=== PATIENT | male | born 1980 | race Caucasian/White ===

== ENCOUNTER 2021-01-31 22:19 | Inpatient (IN) | payer SELFPAY ==
[2021-01-31 22:24] VITALS: PULSE 148; RESP 48; TEMP 39.6; O2SAT 95; BMI 31.1
--- NOTE | 2021-01-31 22:26 | XRR_ITS ---
PROCEDURE INFORMATION: Exam: XR Chest Exam date and time: 01/31/2021 10:26 PM Age: 40 years old Clinical indication: Device placement; Ett placement (vent status); Patient HX: Check S/P intubation in er. ; Additional info: Od TECHNIQUE: Imaging protocol: XR of the chest. Views: 1 view. COMPARISON: No relevant prior studies available. FINDINGS: Tubes, catheters and devices: ET tube present, tip 1.5 cm above the les. Lungs: No CHF/pulmonary edema. Visible lungs appear essentially clear. Pleural spaces: No visible pneumothorax. No definite pleural fluid. Heart/Mediastinum: Heart size is within normal limits. Vasculature: Mild to moderate aortic tortuosity. Bones/joints: No significant acute finding. XR/XR chest 1V portable [id number] IMPRESSION: 1. ET tube as discussed above. 2. No definite pneumonia or CHF. 3. Other findings discussed above.
--- NOTE | 2021-01-31 22:26 | ECG_ITS ---
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 Measurements Intervals [place] Rate: 127 P: 69 CT: 143 QRS: 72 QRSD: 87 T: 58 QT: 286 QTc: 416 Interpretive Statements SINUS TACHYCARDIA ABNORMAL RHYTHM ECG No previous ECG available for comparison Electronically Signed On 02-03-2021 18:22:14 CDT by Sadia Evans M.D. [email or web address]
[2021-01-31] MEDS: LORazepam 2 mg/mL INJ 1 mL 4 MG (22:31)
[2021-01-31 22:32] LABS: Basophils # 0.2 10^3/uL (0.0-0.1); Basophils % 1.1 %; Eosinophils # 0.2 10^3/uL (0.0-0.8); Eosinophils % 1.1 %; Hematocrit 50.7 % (42.0-52.0); Hemoglobin 15.8 g/dL (11.7-16.6); Lymphocytes # 6.2 10^3/uL (0.8-4.8); Mean Corpuscular HGB Conc 31.2 g/dL (30.0-36.0); Mean Corpuscular Hemoglobin 30.3 pg (28.0-34.0); Mean Corpuscular Volume 97.1 fl (80-94); Mean Platelet Volume 9.9 fL (7.4-10.4); Monocytes # 1.6 10^3/uL (0.2-0.9); Monocytes % 10.6 %; Neutrophils # 6.95 10^3/uL (1.8-7.7); Neutrophils % 45.8 %; Nucleated Red Blood Cells % 0 %; Platelet Count 256 10^3/cmm (130-400); Red Blood Count 5.22 10^6/uL (4.1-5.3); White Blood Count 15.2 10^3/uL (4.0-10.0)
[2021-01-31] MEDS: vecuronium 10 mg SDV IVP (22:34)
--- NOTE | 2021-01-31 22:35 | W.ED.OVERDOS ---
HPI - Overdose General: Chief Complaint: Overdose Stated Complaint: ate a handful of meth Time Seen by Provider: 01/31/21 22:25 Source: police Mode of arrival: other (police) Limitations: altered mental status History of Present Illness: HPI Narrative: 40-year-old male who been using methamphetamine today and had a bag of meth in his posession. He was pulled over roughly 20 minutes ago and took the whole bag of methamphetamine at that time. He here is under severe distress. He is extremely diaphoretic altered hypertensive and febrile. He is unable to give any history here. Please states he started to become altered about 10 minutes ago. Review of Systems General: Reports: ROS unobtainable due to medical condition and ROS unobtainable due to mental status Physical Exam Const: COMMON NORMALS: negative for patient oriented x3 GENERAL APPEARANCE: in distress and ill appearing HENMT: COMMON NORMALS: normocephalic and atraumatic HEAD & SCALP: normocephalic and atraumatic Eye: COMMON NORMALS: Equal, round and reactive pupils present and EOMs intact bilaterally PUPIL: Yes Equal, round and reactive pupils present Neck/C-Spine: COMMON NORMALS: full ROM and supple Chest: COMMONS NORMALS: normal inspection of the chest and normal palpation of entire chest wall Resp: COMMON NORMALS: normal respiratory effort, No retractions, No use of accessory muscles and clear to auscultation bilaterally AUSCULTATION: clear to auscultation bilaterally Cardio: COMMON NORMALS: regular rhythm and No murmurs present (Cardio) RATE: tachycardic RHYTHM: regular rhythm GI: COMMON NORMALS: Normal to inspection, nondistended, normoactive bowel sounds present, Soft to palpation, non-tender and no masses PALPATION: Yes Soft to palpation Extremity: COMMON NORMALS: normal to inspection and full ROM Neuro: COMMON NORMALS: negative for patient oriented x3 Psych: COMMON NORMALS: negative for mental status grossly normal and negative for Normal thought process present THOUGHT PROCESS: abnormal Skin: COMMON NORMALS: no rashes or lesions noted and no wounds GENERAL SKIN EXAM: no rashes or lesions noted Procedures Intubation Time out performed: Yes sedative: Etomidate Mg Given: 20 paralytic: Vecuronium Mg Given: 10 Laryngoscope: Lakeisha ET Tube Size: 8 ET Tube Uncuffed: No Tube Secured Depth (cm): 26 Tube Secured Location: teeth Tube Placement Confirmation: visualized tube passing through cords, equal breath sounds bilaterally, no breath sounds over epigastrium and confirmation by capnometry Patient Tolerated Procedure: well Intubation Complications: none Course Vital Signs: Vital signs: Vital Signs Temperature 98.5 F 02/01/21 00:20 Pulse Rate 114 H 02/01/21 00:50 Respiratory Rate 16 02/01/21 00:50 Blood Pressure 101/57 02/01/21 00:50 Pulse Oximetry 99 02/01/21 00:50 MDM - Overdose MDM Narrative: Medical decision making narrative: Patient presents here with an overdose on methamphetamine. Patient was intubated due to his altered mental status hypothermia and elevated heart rate. Patient was diffusely sweaty as well. Patient's vital signs have all improved greatly. Patient is given IV fluids as well. Spoke to the hospitalist Dr. Bassett and will admit. Did attempt to transfer but was not able to find any bed availability and will have to hold in the ER at this time. Lab Data: Labs: Lab Results 01/31/21 01/31/21 01/31/21 Range/Units 11:30 22:25 22:25 WBC 15.2 H (4.0-10.0) 10^3/ uL RBC 5.22 (4.1-5.3) 10^6/u L Hgb 15.8 (11.7-16.6) g/dL Hct 50.7 (42.0-52.0) % MCV 97.1 H (80-94) fl MCH 30.3 (28.0-34.0) pg MCHC 31.2 (30.0-36.0) g/dL RDW 13.0 (12.1-15.1) % Plt Count 256 (130-400) 10^3/c mm MPV 9.9 (7.4-10.4) fL Neut % (Auto) 45.8 % Lymph % (Auto) 41.0 % [place] % (Auto) 10.6 % Eos % (Auto) 1.1 % Baso % (Auto) 1.1 % Neut # (Auto) 6.95 (1.8-7.7) 10^3/u L Lymph # (Auto) 6.2 H (0.8-4.8) 10^3/u L [place] # (Auto) 1.6 H (0.2-0.9) 10^3/u L Eos # (Auto) 0.2 (0.0-0.8) 10^3/u L Baso # (Auto) 0.2 H (0.0-0.1) 10^3/u L Nucleated RBC % (a uto) 0 % Nucleated RBCs # 0.0 /100WBC Specimen Type Arterial Sample Site Radial, right ABG pH 7.37 (7.35-7.45) ABG pCO2 46.8 H (35-45) mmHg ABG pO2 545.0 H (80.0-100.0) mmH g ABG HCO3 26.7 H (22-26) mmol/L ABG Base Excess 0.7 (-2.0-2.0) mmol/ L William Test Pos Hematocrit 44.0 (42-52) % O2 Delivery Device Vent FiO2 100.0 % Tidal Volume 0.55 PEEP 5.0 cmH20 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 [place] Sodium 144 (136-145) mmol/L Potassium 4.5 (3.5-5.1) mmol/L Chloride 100 (98-107) mmol/L Carbon Dioxide 17 L (22-29) mmol/L Anion Gap 31.5 H (5-19) BUN 17 (6-20) mg/dL Creatinine 1.4 H (0.7-1.2) mg/dL GFR Calculation 55.8 L (90-130) mL/min Glucose 95 (65-115) mg/dL Calculated Osmolal ity 299 H (285-295) mOsm/k g Calcium 9.3 (8.5-10.5) mg/dL Total Bilirubin 0.6 (0.15-1.2) mg/dL AST 53 H (0-40) U/L ALT 87 H (0-41) U/L Alkaline Phosphata se 94 (40-130) IU/L Creatine Kinase (39-308) U/L Total Protein 8.0 (6.6-8.7) g/dL Albumin 4.3 (3.5-5.2) g/dL Globulin 3.7 (1.3-4.6) g/dL Salicylates < 0.3 L (3-10) mg/dL Urine Opiates Scre en (Negative) ng/mL Acetaminophen < 5.0 L (10-30) ug/mL Ur Barbiturates Sc reen (Negative) ng/mL Ur Phencyclidine S crn (Negative) ng/mL Ur Amphetamines Sc reen (Negative) ng/mL U Benzodiazepines Scrn (Negative) ng/mL Urine Cocaine Scre en (Negative) ng/mL U Marijuana (THC) Screen (Negative) ng/mL Ethyl Alcohol < 10 (0-10) mg/dL 01/31/21 01/31/21 Range/Units 22:25 23:00 WBC (4.0-10.0) 10^3/ uL RBC (4.1-5.3) 10^6/u L Hgb (11.7-16.6) g/dL Hct (42.0-52.0) % MCV (80-94) fl MCH (28.0-34.0) pg MCHC (30.0-36.0) g/dL RDW (12.1-15.1) % Plt Count (130-400) 10^3/c mm MPV (7.4-10.4) fL Neut % (Auto) % Lymph % (Auto) % [place] % (Auto) % Eos % (Auto) % Baso % (Auto) % Neut # (Auto) (1.8-7.7) 10^3/u L Lymph # (Auto) (0.8-4.8) 10^3/u L [place] # (Auto) (0.2-0.9) 10^3/u L Eos # (Auto) (0.0-0.8) 10^3/u L Baso # (Auto) (0.0-0.1) 10^3/u L Nucleated RBC % (a uto) % Nucleated RBCs # /100WBC Specimen Type Sample Site ABG pH (7.35-7.45) ABG pCO2 (35-45) mmHg ABG pO2 (80.0-100.0) mmH g ABG HCO3 (22-26) mmol/L ABG Base Excess (-2.0-2.0) mmol/ L William Test Hematocrit (42-52) % O2 Delivery Device FiO2 % Tidal Volume PEEP cmH20 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 Sodium (136-145) mmol/L Potassium (3.5-5.1) mmol/L Chloride (98-107) mmol/L Carbon Dioxide (22-29) mmol/L Anion Gap (5-19) BUN (6-20) mg/dL Creatinine (0.7-1.2) mg/dL GFR Calculation (90-130) mL/min Glucose (65-115) mg/dL Calculated Osmolal ity (285-295) mOsm/k g Calcium (8.5-10.5) mg/dL Total Bilirubin (0.15-1.2) mg/dL AST (0-40) U/L ALT (0-41) U/L Alkaline Phosphata se (40-130) IU/L Creatine Kinase 132 (39-308) U/L Total Protein (6.6-8.7) g/dL Albumin (3.5-5.2) g/dL Globulin (1.3-4.6) g/dL Salicylates (3-10) mg/dL Urine Opiates Scre en Negative (Negative) ng/mL Acetaminophen (10-30) ug/mL Ur Barbiturates Sc reen Negative (Negative) ng/mL Ur Phencyclidine S crn Negative (Negative) ng/mL Ur Amphetamines Sc reen Positive H (Negative) ng/mL U Benzodiazepines Scrn Negative (Negative) ng/mL Urine Cocaine Scre en Negative (Negative) ng/mL U Marijuana (THC) Screen Negative (Negative) ng/mL Ethyl Alcohol (0-10) mg/dL Imaging Data^: CXR: Attestation: I personally reviewed and interpreted this imaging study as follows: Radiologist's impression: [address] [address] XRay Report Signed Patient: ranjith mckinney Unit #: [id number] : 1980 Age/Sex: 40 / M ADM Date: 01/31/21 Loc: ER Room/Bed: Attending Dr: Ordering Provider/Ordering MD: Arcadio Rolon MD Date of Service: 01/31/21 Procedure(s): XR chest 1V portable [id number] Accession Number(s): [id number] Report Number: [id number] PROCEDURE INFORMATION: Exam: XR Chest Exam date and time: 01/31/2021 10:26 PM Age: 40 years old Clinical indication: Device placement; Ett placement (vent status); Patient HX: Check S/P intubation in er. ; Additional info: Od TECHNIQUE: Imaging protocol: XR of the chest. Views: 1 view. COMPARISON: No relevant prior studies available. FINDINGS: Tubes, catheters and devices: ET tube present, tip 1.5 cm above the les. Lungs: No CHF/pulmonary edema. Visible lungs appear essentially clear. Pleural spaces: No visible pneumothorax. No definite pleural fluid. Heart/Mediastinum: Heart size is within normal limits. Vasculature: Mild to moderate aortic tortuosity. Bones/joints: No significant acute finding. XR/XR chest 1V portable [id number] IMPRESSION: 1. ET tube as discussed above. 2. No definite pneumonia or CHF. 3. Other findings discussed above. Dictated By: Jace Alfaro MD Signed By: Jace Alfaro MD Signed Date/Time: 01/31/212340 DD/ 39 EKG Data^: EKG 1: Attestation: I personally reviewed and interpreted this EKG as follows: EKG interpretation date: 01/31/21 EKG interpretation time: 23:13 Interpretation: sinus tach hr [address] or twave abnormalities qrs 87 qtc 361 Critical Care Time Critical Care Time: Critical Care Time: Yes Total Critical Care Time: 36 Attestation: This case had a high probability of a clinically significant, sudden, or life threatening deterioration of this patient's condition which required my full and direct attention, intervention and personal management. Coding Level of Care Code ED Scales Inspector for Chg Fwd Exam Comprehensive
[2021-01-31] MEDS: propofol 1,000 MG/100 ML INJ 22 MG IV (22:40)
[2021-01-31] MEDS: propofol 1,000 MG/100 ML INJ 35 MG (22:40)
[2021-01-31 22:57] VITALS: RESP 14
[2021-01-31 22:57] LABS: Alanine Aminotransferase 87 U/L (0-41); Albumin Level 4.3 g/dL (3.5-5.2); Alkaline Phosphatase 94 IU/L (40-130); Aspartate Amino Transferase 53 U/L (0-40); Blood Urea Nitrogen 17 mg/dL (6-20); Calcium 9.3 mg/dL (8.5-10.5); Carbon Dioxide 17 mmol/L (22-29); Chloride 100 mmol/L (98-107); Globulin 3.7 g/dL (1.3-4.6); Glomerular Filtration Rate 55.8 mL/min (90-130); Glucose 95 mg/dL (65-115); Osmolality Calculated 299 mOsm/kg (285-295); Sodium 144 mmol/L (136-145); Total Bilirubin 0.6 mg/dL (0.15-1.2)
[2021-01-31 23:03] LABS: Acetaminophen < 5.0 ug/mL (10-30); Alcohol Level < 10 mg/dL (0-10); Salicylate < 0.3 mg/dL (3-10); Slide Review Slide Review Perform
[2021-01-31 23:04] LABS: Anion Gap 31.5 (5-19); Creatine Phosphokinase 132 U/L (39-308); Potassium 4.5 mmol/L (3.5-5.1)
[2021-01-31] MEDS: sodium chloride 0.9% 1,000 ML 999 ML IV (23:06)
[2021-01-31 23:42] LABS: ABG PCO2 46.8 mmHg (35-45); ABG PH Result 7.37 (7.35-7.45); Base Excess ABG 0.7 mmol/L (-2.0-2.0); Blood Gas Allen Test Pos; Blood Gas Sample Type Arterial; HCO3 ABG 26.7 mmol/L (22-26)
[2021-01-31 23:43] LABS: Blood Gas Operator Identificat MONRO; Blood Gas Sample Site Radial, right; Blood Gas Tidal Volume 0.55; Oxygen Device VENT
[2021-01-31 23:50] VITALS: BP 103/62; PULSE 120; RESP 16; O2SAT 99
[2021-01-31 23:59] LABS: Amphetamines Screen Urine Positive (Negative); Barbiturates Screen Urine Negative (Negative); Benzodiazepines Screen Urine Negative (Negative); Cocaine Screen Urine Negative (Negative); Opiate Screen Urine Negative (Negative); PCP Screen Urine Negative (Negative); THC Screen Urine Negative (Negative)
[2021-02-01] VITALS (17 sets, daily range): BP systolic 97–129; BP diastolic 56–76; PULSE 99–116; RESP 14–20; TEMP 36.9; O2SAT 94–100
[2021-02-01] MEDS: sodium chloride 0.9% 1,000 ML 999 ML IV ×2 (00:05→20:30)
[2021-02-01] MEDS: propofol 1,000 MG/100 ML INJ 25 MG IV ×3 (01:06→08:43)
[2021-02-01] MEDS: sodium chloride 0.9% 1,000 ML 100 ML IV (01:16)
[2021-02-01 06:26] LABS: Add Urine Microscopic? YES; Bilirubin Urine 1+ (Negative); Blood Urine Neg (Negative); Glucose Urine UA Norm (Normal); Ketones Urine Negative (Negative); Leukocyte Esterase Urine 2+ (Negative); Nitrate Urine Negative (Negative); Protein Urine Neg (Negative); Specific Gravity, Urine 1.025 (1.005-1.030); Urine Appearance Cloudy (CLEAR); Urine Color Yellow (Yellow); Urobilinogen Urine Norm (Negative); pH Urine 5 (5-7)
[2021-02-01 06:27] LABS: Add Urine Culture? Yes; Amorphous Sediment Urine 4+ /hpf; Bacteria Urine 1+ /hpf; RBC Urine 0-4 /hpf (0-2); Squamous Epithelial Cell Urine 0-4 /hpf (0-5); WBC Urine 40-55 /hpf (0-5)
[2021-02-01] MEDS: cefTRIAXone 1,000 MG in sodium chloride 0.9% (plus) 50 ML 100 MG IV (06:34)
--- NOTE | 2021-02-01 06:39 | P.HP_ITS ---
Providers/Chief Complaint Admitting Physician: Yoli Bassett MD Primary Care Provider: none known Chief Complaint: ate a handful of meth History of Present Illness SHAYY BROUSSARD is a 40 year old male who presented to the emergency room after taking 2 to 3 g (estimated) of methamphetamine during a police stop. He had been pulled over and took everything that he had on him orally. By the time he arrived here via EMS he was in significant distress, tachycardic, diaphoretic, altered. Nursing staff reported seizure-like activity although this was not passed on to me otherwise. Patient was intubated and has received IV fluids. We do not have any history on him. Review of external medication records shows that he was prescribed some linezolid in November of this year. Patient is being mated for further care. There are currently no ICU beds available. He will be boarding in the ER. He received Rocephin for abnormal urinalysis. Review of Systems General: Reports: ROS unobtainable due to endotracheal tube, ROS unobtainable due to medical condition and ROS unobtainable due to mental status Medications/Allergies Allergies Allergy/AdvReac Type Severity Reaction Status Date / Time No Known Allergies Allergy Verified 02/01/21 04:49 Additional Medication Information no known meds or allergies, prescribed linezolid in November 2020 per external records PFSH Acute PFSH: Social History (Updated 02/01/21 @ 07:27 by Yoli Bassett MD) Substance/Drug Use: current Substance/Drug use type: Methamphetamine Supplemental PFSH Information: Unable to obtain past medical, surgical, social or family history due to current clinical condition/ETT Vitals/I&O/Wt Last Vital Signs Temp 98.5 F 02/01/21 00:20 Pulse 99 02/01/21 06:22 Resp 18 02/01/21 06:22 BP 98/60 02/01/21 06:22 Pulse Ox 100 02/01/21 06:22 01/31/21 01/31/21 02/01/21 14:59 22:59 06:59 Intake Total 2165.066 / 2165.066 Balance 2165.066 / 2165.066 Weight last 48 hrs Weight 104.326 kg Physical Exam Narrative: EXAM NARRATIVE: Constitutional: Sedated on ventilator HEENT: Pupils are reactive, injected sclera, dry lips, mucous membranes though appear moist Neck: Supple Respiratory: Clear to auscultation bilaterally Cardiovascular: Regular rhythm, no murmurs Abdomen: Soft, nontender, positive bowel sounds : Green catheter noted, normal external genitalia Extremities: No pitting edema or acute synovitis Skin: Dry, cool, scattered minor bruises and abrasions, no track albert noted between toes. Both ACs are covered currently to maintain IVs. Neuro: No abnormal movements Urinary Catheter Management^: Green: Cath Placed During This Visit: yes Urinary Catheter Date of Insertion: 01/31/21 Urinary Catheter Time of Insertion: 23:40 Data : 01/31/21 22:25 01/31/21 22:25 Other data: Laboratory Results WBC 15.2 10^3/uL (4.0-10.0) H 01/31/21 22:25 RBC 5.22 10^6/uL (4.1-5.3) 01/31/21 22:25 Hgb 15.8 g/dL (11.7-16.6) 01/31/21 22:25 Hct 50.7 % (42.0-52.0) 01/31/21 22:25 MCV 97.1 fl (80-94) H 01/31/21 22:25 MCH 30.3 pg (28.0-34.0) 01/31/21 22:25 MCHC 31.2 g/dL (30.0-36.0) 01/31/21 22:25 RDW 13.0 % (12.1-15.1) 01/31/21 22:25 Plt Count 256 10^3/cmm (130-400) 01/31/21 22:25 MPV 9.9 fL (7.4-10.4) 01/31/21 22:25 Neut % (Auto) 45.8 % 01/31/21 22:25 Lymph % (Auto) 41.0 % 01/31/21 22:25 [place] % (Auto) 10.6 % 01/31/21 22:25 Eos % (Auto) 1.1 % 01/31/21 22:25 Baso % (Auto) 1.1 % 01/31/21 22:25 Neut # (Auto) 6.95 10^3/uL (1.8-7.7) 01/31/21 22:25 Lymph # (Auto) 6.2 10^3/uL (0.8-4.8) H 01/31/21 22:25 [place] # (Auto) 1.6 10^3/uL (0.2-0.9) H 01/31/21 22:25 Eos # (Auto) 0.2 10^3/uL (0.0-0.8) 01/31/21 22:25 Baso # (Auto) 0.2 10^3/uL (0.0-0.1) H 01/31/21 22:25 Nucleated RBC % (auto) 0 % 01/31/21 22:25 Nucleated RBCs # 0.0 /100WBC 01/31/21 22:25 Specimen Type Arterial 01/31/21 11:30 Sample Site Radial, right 01/31/21 11:30 ABG pH 7.37 (7.35-7.45) 01/31/21 11:30 ABG pCO2 46.8 mmHg (35-45) H 01/31/21 11:30 ABG pO2 545.0 mmHg (80.0-100.0) H 01/31/21 11:30 ABG HCO3 26.7 mmol/L (22-26) H 01/31/21 11:30 ABG Base Excess 0.7 mmol/L (-2.0-2.0) 01/31/21 11:30 [place] Test Pos 01/31/21 11:30 Hematocrit 44.0 % (42-52) 01/31/21 11:30 O2 Delivery Device Vent 01/31/21 11:30 FiO2 100.0 % 01/31/21 11:30 Tidal Volume 0.55 01/31/21 11:30 PEEP 5.0 cmH20 01/31/21 11:30 Personal Protection Specialist ID Monro 01/31/21 11:30 Sodium 144 mmol/L (136-145) 01/31/21 22:25 Potassium 4.5 mmol/L (3.5-5.1) 01/31/21 22:25 Chloride 100 mmol/L (98-107) 01/31/21 22:25 Carbon Dioxide 17 mmol/L (22-29) L 01/31/21 22:25 Anion Gap 31.5 (5-19) H 01/31/21 22:25 BUN 17 mg/dL (6-20) 01/31/21 22:25 Creatinine 1.4 mg/dL (0.7-1.2) H 01/31/21 22:25 GFR Calculation 55.8 mL/min (90-130) L 01/31/21 22:25 Glucose 95 mg/dL (65-115) 01/31/21 22:25 Calculated Osmolality 299 mOsm/kg (285-295) H 01/31/21 22:25 Calcium 9.3 mg/dL (8.5-10.5) 01/31/21 22:25 Total Bilirubin 0.6 mg/dL (0.15-1.2) 01/31/21 22:25 AST 53 U/L (0-40) H 01/31/21 22:25 ALT 87 U/L (0-41) H 01/31/21 22:25 Alkaline Phosphatase 94 IU/L (40-130) 01/31/21 22:25 Creatine Kinase 132 U/L (39-308) 01/31/21 22:25 Total Protein 8.0 g/dL (6.6-8.7) 01/31/21 22:25 Albumin 4.3 g/dL (3.5-5.2) 01/31/21 22:25 Globulin 3.7 g/dL (1.3-4.6) 01/31/21 22:25 Urine Color Yellow (Yellow) 02/01/21 05:45 Urine Appearance Cloudy (CLEAR) 02/01/21 05:45 Urine pH 5 (5-7) 02/01/21 05:45 Ur Specific [place] 1.025 (1.005-1.030) 02/01/21 05:45 Urine Protein Neg (Negative) 02/01/21 05:45 Urine Glucose (UA) Norm (Normal) 02/01/21 05:45 Urine Ketones Negative (Negative) 02/01/21 05:45 Urine Blood Neg (Negative) 02/01/21 05:45 Urine Nitrate Negative (Negative) 02/01/21 05:45 Urine Bilirubin 1+ (Negative) H 02/01/21 05:45 Urine Urobilinogen Norm mg/dL (Negative) 02/01/21 05:45 Ur Leukocyte Esterase 2+ (Negative) H 02/01/21 05:45 Urine RBC 0-4 /hpf (0-2) H 02/01/21 05:45 Urine WBC 40-55 /hpf (0-5) H 02/01/21 05:45 Ur Squamous Epith Cells 0-4 /hpf (0-5) H 02/01/21 05:45 Amorphous Sediment 4+ /hpf 02/01/21 05:45 Urine Bacteria 1+ /hpf (NONE) H 02/01/21 05:45 Salicylates < 0.3 mg/dL (3-10) L 01/31/21 22:25 Urine Opiates Screen Negative ng/mL (Negative) 01/31/21 23:00 Acetaminophen < 5.0 ug/mL (10-30) L 01/31/21 22:25 Ur Barbiturates Screen Negative ng/mL (Negative) 01/31/21 23:00 Ur Phencyclidine Scrn Negative ng/mL (Negative) 01/31/21 23:00 Ur Amphetamines Screen Positive ng/mL (Negative) H 01/31/21 23:00 U Benzodiazepines Scrn Negative ng/mL (Negative) 01/31/21 23:00 Urine Cocaine Screen Negative ng/mL (Negative) 01/31/21 23:00 U Marijuana (THC) Screen Negative ng/mL (Negative) 01/31/21 23:00 Ethyl Alcohol < 10 mg/dL (0-10) 01/31/21 22:25 Impressions Chest X-Ray 01/31/21 22:26 IMPRESSION: 1. ET tube as discussed above. 2. No definite pneumonia or CHF. 3. Other findings discussed above. EKG sinus tachycardia 127 bpm A&P Assessment and plan (1) Methamphetamine intoxication: Status: Acute (2) Endotracheally intubated: Status: Acute (3) UTI (urinary tract infection): Status: Acute Qualifiers: Urinary tract infection type: acute cystitis Hematuria presence: without hematuria Qualified Code(s): N30.00 - Acute cystitis without hematuria (4) Acute kidney injury: Status: Acute (5) Transaminitis: Status: Acute Additional A&P Information Inpatient admission Continue current sedation and ventilatory support overnight In the morning try to decrease sedation and see how he does Rocephin for UTI IV fluids Check CK level Repeat laboratory studies in the morning Telelmetry monitoring Lovenox for DVT prophylaxis PPI for GI prophylaxis Green catheter for monitoring of urine output Supportive care otherwise Clarify history when able Anticipated Disposition: Home Code Status: Full Attestations Medical Necessity Statement*: Anticipated stay greater than two midnights in this gentleman with methamphetamine overdose necessitating intubation. As evidence of UTI and acute kidney injury as well. 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
[2021-02-01 07:31] LABS: ABG PCO2 44.3 mmHg (35-45); ABG PH Result 7.37 (7.35-7.45); Arterial Blood Gas Hematocrit 40.8 % (42-52); Base Excess ABG 0.2 mmol/L (-2.0-2.0); Blood Gas Operator Identificat glc; Blood Gas Sample Site Brachial, left; Blood Gas Sample Type Arterial; Blood Gas Tidal Volume 0.55; HCO3 ABG 25.8 mmol/L (22-26); Oxygen Device VENT
--- NOTE | 2021-02-01 07:39 | ECG_ITS ---
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 Measurements Intervals [place] Rate: 102 P: 70 SD: 166 QRS: 62 QRSD: 89 T: 70 QT: 337 QTc: 440 Interpretive Statements SINUS TACHYCARDIA ABNORMAL RHYTHM ECG Compared to ECG 01/31/2021 23:13:34 No significant changes Electronically Signed On 02-03-2021 18:29:40 CDT by Sadia Evans M.D. [id number]
[2021-02-01 09:18] LABS: Basophils # 0.1 10^3/uL (0.0-0.1); Basophils % 0.7 %; Eosinophils # 0.1 10^3/uL (0.0-0.8); Eosinophils % 1.1 %; Hematocrit 39.8 % (42.0-52.0); Hemoglobin 12.9 g/dL (11.7-16.6); Lymphocytes # 1.2 10^3/uL (0.8-4.8); Lymphocytes % 16.3 %; Mean Corpuscular HGB Conc 32.4 g/dL (30.0-36.0); Mean Corpuscular Hemoglobin 30.5 pg (28.0-34.0); Mean Corpuscular Volume 94.1 fl (80-94); Mean Platelet Volume 9.9 fL (7.4-10.4); Monocytes # 0.8 10^3/uL (0.2-0.9); Monocytes % 11.4 %; Neutrophils # 5.07 10^3/uL (1.8-7.7); Neutrophils % 70.2 %; Nucleated Red Blood Cells % 0 %; Platelet Count 152 10^3/cmm (130-400); Red Blood Count 4.23 10^6/uL (4.1-5.3); Red Cell Distribution Width 13.5 % (12.1-15.1); White Blood Count 7.2 10^3/uL (4.0-10.0)
[2021-02-01 09:39] LABS: Alanine Aminotransferase 91 U/L (0-41); Albumin Level 3.2 g/dL (3.5-5.2); Alkaline Phosphatase 70 IU/L (40-130); Aspartate Amino Transferase 89 U/L (0-40); Blood Urea Nitrogen 15 mg/dL (6-20); Calcium 7.7 mg/dL (8.5-10.5); Carbon Dioxide 24 mmol/L (22-29); Chloride 109 mmol/L (98-107); Globulin 2.6 g/dL (1.3-4.6); Glomerular Filtration Rate 82.3 mL/min (90-130); Glucose 89 mg/dL (65-115); Magnesium 2.4 mg/dL (1.7-2.3); Osmolality Calculated 290 mOsm/kg (285-295); Sodium 140 mmol/L (136-145); Total Bilirubin 0.7 mg/dL (0.15-1.2); Total Protein 5.8 g/dL (6.6-8.7)
[2021-02-01 09:52] LABS: Anion Gap 11.3 (5-19); Potassium 4.3 mmol/L (3.5-5.1)
[2021-02-01 09:59] LABS: Creatine Phosphokinase 3336 U/L (39-308)
[2021-02-01] MEDS: dexmedetomidine 400 MCG in sodium chloride 0.9% (100 ml) 100 ML IV (11:52)
--- NOTE | 2021-02-01 12:04 | P.PN_ITS ---
Subjective Subjective: Interval history: Patient remained intubated on mechanical ventilation with FiO2 of 30%. Sedated on propofol. Medications: Reviewed: Yes Medication Review Details: no known meds or allergies, prescribed linezolid in November 2020 per external records Vitals/I&O/Wt Last Vital Signs Temp 98.5 F 02/01/21 00:20 Pulse 100 02/01/21 10:00 Resp 14 02/01/21 10:00 BP 117/75 02/01/21 10:00 Pulse Ox 100 02/01/21 10:00 01/31/21 02/01/21 02/01/21 22:59 06:59 14:59 Intake Total 2165.066 / 2165.066 180.0 / 180.0 Balance 2165.066 / 2165.066 180.0 / 180.0 Weight last 48 hrs Weight 104.326 kg Physical Exam Narrative: EXAM NARRATIVE: General -intubated on mechanical by HEENT- ET tube in place CVS- normal sinus rhythm Chest- vented sounds bilaterally Abdomen- nondistended Extremities-no edema Urinary Catheter Management^: Green: Cath Placed During This Visit: yes Urinary Catheter Date of Insertion: 01/31/21 Urinary Catheter Time of Insertion: 23:40 Data : 02/01/21 09:10 02/01/21 09:10 A&P Assessment and plan (1) Rhabdomyolysis: Status: Acute (2) Methamphetamine intoxication: Status: Acute (3) Endotracheally intubated: Status: Acute (4) UTI (urinary tract infection): Status: Acute Qualifiers: Urinary tract infection type: acute cystitis Hematuria presence: without hematuria Qualified Code(s): N30.00 - Acute cystitis without hematuria (5) Acute kidney injury: Status: Acute (6) Transaminitis: Status: Acute Additional A&P Information Wean sedation And vent as tolerated Normal saline at 150 cc/hour Repeat labs in a.m. Continue current medications Remainder management as per history and physical Attestations Medical Necessity Statement*: Continuous position for management of methamphetamine overdose, req intubation, vent and rhabdo Time Spent in Patient Care: Greater than 35 minutes (>than 50% of time spent in counselling and/or direct pt care on unit) . 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
[2021-02-01] MEDS: sodium chloride 0.9% 1,000 ML 150 ML IV ×2 (12:07→23:00)
--- NOTE | 2021-02-01 13:41 | PC.NURSE ---
OG tube placed by previous shift
--- NOTE | 2021-02-01 13:44 | PC.NURSE ---
titrated propofol drip to 20mcg
[2021-02-01] MEDS: pantoprazole 40 mg SDV IVP (13:48)
--- NOTE | 2021-02-01 14:54 | PC.NURSE ---
propofol gtt titrated down to 10
--- NOTE | 2021-02-01 16:00 | PC.NURSE ---
pt extubated at 1545, vital signs BP 129/79, HR 109, RR 18, SpO2 97% 3L NC. pt removed from all restraints
[2021-02-01] MEDS: LORazepam 2 mg/mL INJ 1 mL IVP (17:21)
[2021-02-02] VITALS (18 sets, daily range): BP systolic 103–142; BP diastolic 59–75; PULSE 103–124; RESP 18–24; TEMP 37.3–38.3; O2SAT 95–99
[2021-02-02] MEDS: LORazepam 2 mg/mL INJ 1 mL IVP (05:50)
[2021-02-02] MEDS: cefTRIAXone 1,000 MG in sodium chloride 0.9% (plus) 50 ML 100 MG IV (05:54)
[2021-02-02] MEDS: sodium chloride 0.9% 1,000 ML 150 ML IV ×3 (06:27→20:07)
[2021-02-02] MEDS: pantoprazole 40 mg SDV IVP (09:05)
[2021-02-02] MEDS: enoxaparin 40 mg/0.4 mL Syringe SUBCUT (09:05)
--- NOTE | 2021-02-02 09:51 | CT_ITS ---
WS: [id number] CT HEAD NONCONTRAST HISTORY: altered mental status TECHNIQUE: Contiguous axial imaging performed through the brain in 2.5 mm imaging. Bone and soft tiss ue windows. Sagittal and coronal reformats reviewed. All CT scans at [facility] use at ast one of these dose optimization techniques: automated exposure control; mA and/or kV adjustment pe r patient size (includes targeted exams where dose is matched to clinical indication); or iterative r econstruction. DLP: 2105.26 mGy.cm COMPARISON: None available. No acute intracranial hemorrhage, midline shift or mass effect. No atrophy or prior infarcts or herniation. Ventricles: Normal size with no hydrocephalus. Paranasal sinuses: Air-fluid levels in the sphenoid sinuses bilaterally. Mastoid air cells: Well pneumatized. Calvarium and scalp: Skull is intact with no soft tissue edema or swelling. CT/CT head wo con* [id number] IMPRESSION: 1. No acute intracranial hemorrhage or edema. Normal CT brain. 2. Sphenoid sinusitis.
[2021-02-02 11:14] LABS: ABG PCO2 36.2 mmHg (35-45); Alveolar-Arterial Oxygen Gradi 9.3 mmHg (5-10); Arterial Blood Gas Hematocrit 40.5 % (42-52); Base Excess ABG -1.9 mmol/L (-2.0-2.0); Blood Gas Allen Test Pos; Blood Gas Operator Identificat glc; Blood Gas Sample Site Radial, right; Blood Gas Sample Type Arterial; Carboxyhemoglobin 1.2 %THgb (0.4-20.1); HCO3 ABG 22.5 mmol/L (22-26); HGB O2 Sat 95.5 % (95-100); Ionized Calcium Level - ABG 1.1 mmol/L (1.1-1.4); Methemoglobin 0.6 % (0.4-1.5); Oxygen Device NC; Oxygen Saturation ABG 97.3; PO2 ABG 82.6 mmHg (80.0-100.0); Potassium Level - ABG 4.1 mmol/L (3.5-5.0); Total Hemoglobin 13.2 g/dL (14-18)
[2021-02-02 11:21] LABS: Basophils # 0.1 10^3/uL (0.0-0.1); Basophils % 0.5 %; Eosinophils # 0.1 10^3/uL (0.0-0.8); Hematocrit 40.5 % (42.0-52.0); Hemoglobin 13.1 g/dL (11.7-16.6); Lymphocytes # 1.4 10^3/uL (0.8-4.8); Mean Corpuscular HGB Conc 32.3 g/dL (30.0-36.0); Mean Corpuscular Hemoglobin 30.7 pg (28.0-34.0); Mean Corpuscular Volume 94.8 fl (80-94); Mean Platelet Volume 9.9 fL (7.4-10.4); Monocytes # 0.9 10^3/uL (0.2-0.9); Monocytes % 9.1 %; Neutrophils # 7.23 10^3/uL (1.8-7.7); Neutrophils % 75.1 %; Nucleated Red Blood Cells % 0 %; Platelet Count 129 10^3/cmm (130-400); Red Blood Count 4.27 10^6/uL (4.1-5.3); White Blood Count 9.6 10^3/uL (4.0-10.0)
[2021-02-02 11:35] LABS: Alanine Aminotransferase 114 U/L (0-41); Alkaline Phosphatase 65 IU/L (40-130); Anion Gap 10.1 (5-19); Aspartate Amino Transferase 165 U/L (0-40); Blood Urea Nitrogen 12 mg/dL (6-20); Calcium 7.4 mg/dL (8.5-10.5); Carbon Dioxide 23 mmol/L (22-29); Chloride 106 mmol/L (98-107); Globulin 2.5 g/dL (1.3-4.6); Glucose 74 mg/dL (65-115); Osmolality Calculated 278 mOsm/kg (285-295); Potassium 4.1 mmol/L (3.5-5.1); Sodium 135 mmol/L (136-145); Total Bilirubin 0.8 mg/dL (0.15-1.2); Total Protein 5.5 g/dL (6.6-8.7)
[2021-02-02 12:12] LABS: Creatine Phosphokinase 4157 U/L (39-308)
--- NOTE | 2021-02-02 16:03 | PM.PN ---
Subjective Subjective: Interval history: 40 year old male who presented to the emergency room after taking 2 to 3 g (estimated) of methamphetamine during a police stop. He had been pulled over and took everything that he had on him orally. By the time he arrived here via EMS he was in significant distress, tachycardic, diaphoretic, altered. Nursing staff reported seizure-like activity although this was not passed on to me otherwise. Patient was intubated and has received IV fluids. We do not have any history on him. Review of external medication records shows that he was prescribed some linezolid in November of this year. Patient is being mated for further care. He received Rocephin for abnormal urinalysis.Patient remained intubated on mechanical ventilation with FiO2 of 30%. Sedated on propofolInitially which was weaned off. Patient was extubated On 02/01/2021. Post extubation patient was very confused. initially appeared to have seizure-like movement however was arousable. Keppra 1 g IV x1 was given. Head CT was performed which do not show any evidence of acute intracranial abnormality. Noted to have low-grade fevers. Medications: Reviewed: Yes Medication Review Details: no known meds or allergies, prescribed linezolid in November 2020 per external records Vitals/I&O/Wt Last Vital Signs Temp 99.2 F 02/02/21 14:00 Pulse 107 H 02/02/21 14:00 Resp 20 H 02/02/21 14:00 BP 119/71 02/02/21 14:00 Pulse Ox 97 02/02/21 14:00 02/02/21 02/02/21 02/02/21 06:59 14:59 22:59 Intake Total 2160 / 4497.441 1000 / 1000 Output Total 1000 / 2200 1000 / 1000 Balance 1160 / 2297.441 0 / 0 Weight last 48 hrs Weight 104.326 kg Physical Exam Narrative: EXAM NARRATIVE: General - Confused HEENT- grossly unremarkable CVS- normal sinus rhythm Chest- nonlabored respiration Abdomen- nondistended Extremities-no edema Urinary Catheter Management^: Green: Cath Placed During This Visit: yes Reason for Continuing Indwelling Catheter: Accurate Measurement of Urinary Output in Critically Ill Patients Urinary Catheter Date of Insertion: 01/31/21 Urinary Catheter Time of Insertion: 23:40 Data : 02/02/21 10:54 02/02/21 10:54 Micro: Microbiology 02/01/21 12:20 Gram Stain - Final Sputum - Endotracheal Tube Aspirate Sputum Culture - Preliminary 02/01/21 05:45 Urine Culture - Preliminary Urine,Clean Catch 02/01/21 05:45 Chlamydia trachomatis (EVERARDO) - Final Urine Random Neisseria gonorrhoeae (EVERARDO) - Final A&P Assessment and plan (1) Rhabdomyolysis: Status: Acute (2) Methamphetamine intoxication: Status: Acute (3) Endotracheally intubated: Status: Acute (4) UTI (urinary tract infection): Status: Acute Qualifiers: Urinary tract infection type: acute cystitis Hematuria presence: without hematuria Qualified Code(s): N30.00 - Acute cystitis without hematuria (5) Acute kidney injury: Status: Acute (6) Transaminitis: Status: Acute Additional A&P Information Patient remains confused post extubation Remain NPO until speech therapy evaluation Must be more alert prior to starting Head CT without contrast - no acute Intracranial abnormality Rocephin 1 g IV Q 24 hours Will follow-up on cultures Repeat blood gases today -stable Will plan to consult psychiatry once more alert Continue IV fluids at 150 cc/hour Repeat CPK level in a.m. Will hold off on further antiseizure medications EEG ordered Renal function stable Attestations Medical Necessity Statement*: Will continue further hospitalization for management ofMethamphetamine overdose, rhabdomyolysis Time Spent in Patient Care: Greater than 35 minutes (>than 50% of time spent in counselling and/or direct pt care on unit). Coding Level of Care Code Acute Donor Services Specialist for [facility] Jose Franciscod Diagnoses Rhabdomyolysis M62.82 Methamphetamine intoxication F15.929 Endotracheally intubated Z97.8 UTI (urinary tract infection) N30.00 Urinary tract infection type: acute cystitis Hematuria presence: without hematuria Acute kidney injury N17.9 Transaminitis R74.01
--- NOTE | 2021-02-02 20:58 | PC.NURSE ---
i reported high temp 100.6 and high pluse 118 to nurse
[2021-02-03] VITALS (10 sets, daily range): BP systolic 108–148; BP diastolic 66–85; PULSE 93–120; RESP 17–18; TEMP 36.4–38.1; O2SAT 91–96
--- NOTE | 2021-02-03 00:31 | PC.NURSE ---
i reported high temp 100.6 and high pluse 104 to nurse
--- NOTE | 2021-02-03 00:55 | PC.NURSE ---
i reported high pluse 104 and high temp 100.6 to nurse
--- NOTE | 2021-02-03 02:00 | PC.NURSE ---
pt awake sitting at edge of bed. pt complaining of penis hurting and requesting lee catheter out. pt is still very lethargic and barely opening eyes. pt was cooperative with lying down in bed after this nurse stated she would see if pt had anything to help with the discomfort. pt asked, Where am I at? when this nurse informed the pt that he was in the hospital in [place]. the pt asked, How did I get to [place]. This nurse informed patient, From my understanding, the police had stopped you and you had ingested methamphetamines and the brought you in so we could monitor you. You were previously intubated in the ICU but you are currently on the medical floor. The patient then asked, So, I am in police custody then. This nurse informed the patient he was not currently in custody that he was here so we could monitor him to make sure he does not stop breathing or his heart stops. Patient seemed relieved and stated, Okay. Thank you.
[2021-02-03] MEDS: sodium chloride 0.9% 1,000 ML 150 ML IV ×2 (03:00→11:34)
--- NOTE | 2021-02-03 03:08 | PC.NURSE ---
i reported high pluse to nurse
[2021-02-03] MEDS: cefTRIAXone 1,000 MG in sodium chloride 0.9% (plus) 50 ML 100 MG IV (04:01)
--- NOTE | 2021-02-03 04:13 | PC.NURSE ---
i reported high pluse 120 and high temp 100.6 to nurse
[2021-02-03 05:22] LABS: Basophils # 0.1 10^3/uL (0.0-0.1); Basophils % 0.6 %; Eosinophils # 0.1 10^3/uL (0.0-0.8); Eosinophils % 1.1 %; Hemoglobin 12.9 g/dL (11.7-16.6); Lymphocytes # 1.5 10^3/uL (0.8-4.8); Lymphocytes % 16.8 %; Mean Corpuscular HGB Conc 33.9 g/dL (30.0-36.0); Mean Corpuscular Hemoglobin 31.1 pg (28.0-34.0); Mean Corpuscular Volume 91.6 fl (80-94); Mean Platelet Volume 10.1 fL (7.4-10.4); Monocytes # 0.8 10^3/uL (0.2-0.9); Monocytes % 8.6 %; Neutrophils # 6.49 10^3/uL (1.8-7.7); Neutrophils % 72.6 %; Nucleated Red Blood Cells % 0 %; Platelet Count 135 10^3/cmm (130-400); Red Blood Count 4.15 10^6/uL (4.1-5.3); Red Cell Distribution Width 12.4 % (12.1-15.1); White Blood Count 8.9 10^3/uL (4.0-10.0)
[2021-02-03 05:54] LABS: Alanine Aminotransferase 98 U/L (0-41); Albumin Level 2.8 g/dL (3.5-5.2); Alkaline Phosphatase 60 IU/L (40-130); Anion Gap 14.9 (5-19); Aspartate Amino Transferase 122 U/L (0-40); Blood Urea Nitrogen 12 mg/dL (6-20); Calcium 7.4 mg/dL (8.5-10.5); Carbon Dioxide 18 mmol/L (22-29); Chloride 103 mmol/L (98-107); Creatinine Clr Calc Pharmacy 151.7491; Globulin 2.7 g/dL (1.3-4.6); Glomerular Filtration Rate 106.5 mL/min (90-130); Glucose 74 mg/dL (65-115); Magnesium 1.5 mg/dL (1.7-2.3); Osmolality Calculated 272 mOsm/kg (285-295); Potassium 3.9 mmol/L (3.5-5.1); Sodium 132 mmol/L (136-145); Total Bilirubin 0.9 mg/dL (0.15-1.2); Total Protein 5.5 g/dL (6.6-8.7)
[2021-02-03] MEDS: enoxaparin 40 mg/0.4 mL Syringe SUBCUT (06:14)
[2021-02-03 06:27] LABS: Creatine Phosphokinase 1932 U/L (39-308)
[2021-02-03] MEDS: pantoprazole 40 mg SDV IVP (09:55)
--- NOTE | 2021-02-03 10:30 | PC.NURSE ---
Petty Lawson [phone] is patients mother. she called to talk with him and get an update on his status, she was not listed on PHI consent. This nurse asked patient if it would be okay if we discussed his care with his mother Petty, and he stated i don't care, that's fine Francesca Lopez LPN witnessed this conversation.
[2021-02-03] MEDS: magnesium sulfate premix 2 GM/50 ML PIGGYBACK IV (12:29)
--- NOTE | 2021-02-03 15:15 | P.PN_ITS ---
Subjective Subjective: Interval history: 40 year old male who presented to the emergency room after taking 2 to 3 g (estimated) of methamphetamine during a police stop. He had been pulled over and took everything that he had on him orally. By the time he arrived here via EMS he was in significant distress, tachycardic, diaphoretic, altered. Nursing staff reported seizure-like activity although this was not passed on to me otherwise. Patient was intubated and has received IV fluids. We do not have any history on him. Review of external medication records shows that he was prescribed some linezolid in November of this year. Patient is being mated for further care. He received Rocephin for abnormal urinalysis.Patient remained intubated on mechanical ventilation with FiO2 of 30%. Sedated on propofolInitially which was weaned off. Patient was extubated On 02/01/2021. Post extubation patient was very confused. initially appeared to have seizure-like movement however was arousable. Keppra 1 g IV x1 was given. Head CT was performed which do not show any evidence of acute intra cranial abnormality. Noted to have low-grade fevers. 02/03 Patient alert awake today no complaints. Medications: Reviewed: Yes Medication Review Details: no known meds or allergies, prescribed linezolid in November 2020 per external records Vitals/I&O/Wt Last Vital Signs Temp 99.5 F 02/03/21 11:19 Pulse 95 02/03/21 11:19 Resp 17 02/03/21 11:19 BP 131/78 02/03/21 11:19 Pulse Ox 96 02/03/21 11:19 02/03/21 02/03/21 02/03/21 06:59 14:59 22:59 Intake Total 1310 / 3310 1290 / 1290 Output Total 800 / 2400 2100 / 2100 Balance 510 / 910 -810 / -810 Physical Exam Narrative: EXAM NARRATIVE: General - Alert awake an oriented x3 HEENT- grossly unremarkable CVS- normal sinus rhythm Chest- nonlabored respiration Abdomen- nondistended Extremities-no edema Urinary Catheter Management^: Lee: Cath Placed During This Visit: yes Reason for Continuing Indwelling Catheter: Accurate Measurement of Urinary Output in Critically Ill Patients Urinary Catheter Date of Insertion: 01/31/21 Urinary Catheter Time of Insertion: 23:40 Data : 02/03/21 04:35 02/03/21 04:35 Micro: Microbiology 02/01/21 12:20 Gram Stain - Final Sputum - Endotracheal Tube Aspirate Sputum Culture - Preliminary 02/01/21 05:45 Urine Culture - Preliminary Urine,Clean Catch A&P Assessment and plan (1) Rhabdomyolysis: Status: Acute (2) Methamphetamine intoxication: Status: Acute (3) Endotracheally intubated: Status: Acute (4) UTI (urinary tract infection): Status: Acute Qualifiers: Urinary tract infection type: acute cystitis Hematuria presence: without hematuria Qualified Code(s): N30.00 - Acute cystitis without hematuria (5) Acute kidney injury: Status: Acute (6) Transaminitis: Status: Acute Additional A&P Information Started on diet Head CT without contrast - no acute Intracranial abnormality Rocephin 1 g IV Q 24 hours Cultures - Negative to date Repeat blood gases today -stable Denied suicidal ideation Continue IV fluids at 150 cc/hour Repeat CPK level in a.m. - CPK improved however still > 1000 D/C lee Will hold off on further antiseizure medications Hold on EEG -Seizure precautions Renal function stable Repeat labs in am Will plan to discharge once CPK < 1000 Attestations Medical Necessity Statement*: continue hospitalization for management of rhabdo Time Spent in Patient Care: Greater than 35 minutes (>than 50% of time spent in counselling and/or direct pt care on unit) . Coding Level of Care Code Acute Fish And Wildlife Biologist for [facility] Jose Francicsod Diagnoses Rhabdomyolysis M62.82 Methamphetamine intoxication F15.929 Endotracheally intubated Z97.8 UTI (urinary tract infection) N30.00 Urinary tract infection type: acute cystitis Hematuria presence: without hematuria Acute kidney injury N17.9 Transaminitis R74.01
[2021-02-04] VITALS: BP 122/79; PULSE 108; RESP 18; TEMP 36.5; O2SAT 95
[2021-02-04] MEDS: sodium chloride 0.9% 1,000 ML 150 ML IV ×2 (01:23→08:21)
[2021-02-04 04:00] VITALS: BP 127/74; PULSE 110; RESP 18; TEMP 36.6; O2SAT 96
[2021-02-04] MEDS: enoxaparin 40 mg/0.4 mL Syringe SUBCUT (05:45)
[2021-02-04] MEDS: cefTRIAXone 1,000 MG in sodium chloride 0.9% (plus) 50 ML 100 MG IV (05:45)
[2021-02-04 06:00] VITALS: PULSE 89
[2021-02-04 08:00] VITALS: BP 134/87; PULSE 87; RESP 16; TEMP 36.8; O2SAT 95
--- NOTE | 2021-02-04 10:51 | PC.CHAP ---
Pastoral Care Encounter/Spiritual Assessment Type of Contact [X] Declined chain repairer visit [] Patient/Family/Request visit [] Outpatient visit [] Follow-up visit [] Physician referral [] Code/Alert [X] Routine visit [] Staff referral [] Actively dying [] Patient sleeping [] Family support [] [] Out of room [] Palliative care [] [] Receiving care in room [] Pre-surgical visit [] Trauma [] Long length of stay [] ICU visit [] Other: Relational/Emotional Strength [] Patient feels connected with others/family/visitors/staff [X] Distress [] Loneliness/isolation [] Abandonment Spirituality of Patient [] Person of Bhavna [] Attends Yazidi of their Bhavna [] Believes in Prayer [] Reads Bible or Faith materials [X] There are Spiritual issues to be addressed Pit Hand Interventions [] Prayer [] Active listening [X] Non-anxious presence [] Spiritual/emotional support [] Crisis/trauma care [] Spiritual counseling [] Bereavement support [] Provided bereavement packet [] Provided Bible/devotional materials [] Provided toy/stuffed animal, coloring book to patient or family member [] Provided Communion [] Anointing/Bouse [] Salvation [X] Completed spiritual assessment [] Other: Impact on Illness or Injury [] Angry [] Fearful [X] Anxious [] Often cries [] Exhaustion [] Unable to work [] Unable to attend synagogue [] Unable to walk/stand [] Unable to read [] Unable to drive [] Unable to eat/drink [] Unable to sleep [] Unable to be with family [] Patient intubated [] Other: Summary: Pt did not want to visit with chain repairer. Pt was anxious to go home and would not discuss his reason for admission. Pt dressed and ready to be discharged. Time spent with patient: <5 mins
[2021-02-04 11:28] VITALS: BP 134/87; PULSE 87; RESP 16; TEMP 36.8; O2SAT 95
--- NOTE | 2021-02-04 11:30 | PC.NURSE ---
Patient requested at 0800 to leave against medical advice (AMA). Encourage patient to stay and be released by the doctor. Patient states, No if I am not on hold I wan to leave. Notified Dr. Healy. Reviewed the risks of leaving which included and the benefits of stay which include treatment of withdrawal. Patient is still requesting to leave. AMA form signed by patient. IV's removed intact. Patient wheel chaired to private car.
--- NOTE | 2021-02-04 11:50 | PC.NURSE ---
08Jerod Olivares in security was contacted regarding patient leaving AMA. Dr. Healy is aware that patient is going. Patient is A&Ox3. REspirations even and non-labored on room air.
--- NOTE | 2021-02-04 16:52 | P.DS_ITS ---
Discharge Providers Date of Admission: 02/01/21 07:03 Date of Discharge: February 04, 2021 Attending Provider at Admission: Yoli Bassett MD Attending Provider at Discharge: Jeff Christianson Diagnoses at Discharge Discharge Diagnosis (1) Rhabdomyolysis: Status: Acute (2) Methamphetamine intoxication: Status: Acute (3) Endotracheally intubated: Status: Acute (4) UTI (urinary tract infection): Status: Acute Qualifiers: Urinary tract infection type: acute cystitis Hematuria presence: without hematuria Qualified Code(s): N30.00 - Acute cystitis without hematuria (5) Acute kidney injury: Status: Acute (6) Transaminitis: Status: Acute Reason for Visit Reason for Visit: ate a handful of meth Hospital Course Hospital Course 40 year old male who presented to the emergency room after taking 2 to 3 g (estimated) of methamphetamine during a police stop. He had been pulled over and took everything that he had on him orally. By the time he arrived here via EMS he was in significant distress, tachycardic, diaphoretic, altered. Nursing staff reported seizure-like activity although this was not passed on to me otherwise. Patient was intubated and has received IV fluids. We do not have any history on him. Review of external medication records shows that he was prescribed some linezolid in November of this year. Patient is being mated for further care. He received Rocephin for abnormal urinalysis.Patient remained intubated on mechanical ventilation with FiO2 of 30%. Sedated on propofolInitially which was weaned off. Patient was extubated On 02/01/2021. Post extubation patient was very confused. initially appeared to have seizure- like movement however was arousable. Keppra 1 g IV x1 was given. Head CT was performed which do not show any evidence of acute intracranial abnormality. Noted to have low-grade fevers. Upon admission paitient was weaned off oxygen. His mental status returned to baseline. CPK level had improved however still remained > 1000. Continued on rocephin. Culture were pending. Unfortunately patient left AMA on 02/04/2021 after signing ama paperwork. Physical Exam Narrative: EXAM NARRATIVE: No exam performed on 02/04 as patient left ama Urinary Catheter Management^: Green: Cath Placed During This Visit: yes, but has since been removed by the nurse Reason for Continuing Indwelling Catheter: Decision to DC Catheter Urinary Catheter Date of Insertion: 01/31/21 Urinary Catheter Time of Insertion: 23:40 Date Urinary Catheter Removed: 02/03/21 Time Urinary Catheter Discontinued: 11:45 Discharge Data Data Completed and Pending: Completed Studies During Hospitalization Category Date Time Status CT head wo con* 7 0450 Stat Cat Scan 02/02/21 09:51 Completed XR chest 1V sarai ble [id number] Urgent Exams 01/31/21 22:26 Completed Vitals: Last Vital Signs Temp 98.2 F 02/04/21 11:28 Pulse 87 02/04/21 11:28 Resp 16 02/04/21 11:28 BP 134/87 02/04/21 11:28 Pulse Ox 95 02/04/21 11:28 Discharge Plan Discharge Patient Disposition: Left Against Medical Advice Prescriptions: No Action Unable to Assess RF: 0 Discharge Attestations Time Spent in Discharge Care*: less than 30 min Status at Discharge: Cognitive status at discharge: cognitively intact , Behavioral status at discharge: can be uncooperative , Functional status at discharge: independent ambulation Quality Metrics Clinical Quality Measures During this hospital stay, did patient experience: None Coding Level of Care Code Acute Chg FW DC note Diagnoses Rhabdomyolysis M62.82 Methamphetamine intoxication F15.929 Endotracheally intubated Z97.8 UTI (urinary tract infection) N30.00 Urinary tract infection type: acute cystitis Hematuria presence: without hematuria Acute kidney injury N17.9 Transaminitis R74.01
== END 2021-02-04 11:30 | disposition left against medical advice (07) | DRG 918 ==
LOC: ER 02-01 18:21 → MEDSURG 02-03 09:34 → CSU 02-03 09:43 → MEDSURG 02-03 09:47
PROVIDERS: Admitting Provider Hospitalist; Emergency Provider Emergency Medicine; Visit Provider Hospitalist
DX: T43.622A Poisoning by amphetamines, intentional self-harm, initial encounter (principal); N30.00 Acute cystitis without hematuria; N17.9 Acute kidney failure, unspecified; M62.82 Rhabdomyolysis; I10 Essential (primary) hypertension; R68.0 Hypothermia, not associated with low environmental temperature; F15.129 Other stimulant abuse with intoxication, unspecified; Z53.29 Procedure and treatment not carried out because of patient's decision for other reasons
CPT/HCPCS: 31500; 36415; 36600; 51702; 70450; 71045; 80051; 80053; 80306; 80307; 81001; 82330; 82550; 82803; 82805; 83735; 84145; 85025; 87070; 87086; 87205; 87491; 87591; 93005; 94002; 94003; 94799; 96372; 99291; C9113; J0696; J1650; J1953; J2060; J2704; J3010; J3475; J3490; J7030